=== PATIENT | male | born 1940 | race Caucasian/White ===

== ENCOUNTER → 2018-10-18 | Outpatient (REF) ==
[2018-10-18 13:56] LABS: CREATININE, serum 0.9 mg/dL (0.66-1.25); POTASSIUM 4.5 mmol/L (3.4-5.0)
== END ==
LOC: ZCOL.LAB 13:24
PROVIDERS: Internal Medicine
DX: Z01.89 Encounter for other specified special examinations (principal)

== ENCOUNTER → 2018-10-25 | Outpatient (REF) ==
[2018-10-25 15:35] LABS: CALCIUM 8.4 mg/dL (8.4-10.2); CREATININE, serum 0.87 mg/dL (0.66-1.25); MAGNESIUM 2.4 mg/dL (1.6-2.3); PHOSPHOROUS 3.8 mg/dL (2.5-4.5); POTASSIUM 4.5 mmol/L (3.4-5.0)
== END ==
LOC: ZCOL.LAB 15:11
PROVIDERS: Internal Medicine
DX: Z01.89 Encounter for other specified special examinations (principal)

== ENCOUNTER → 2018-10-29 | Outpatient (REF) | LOC: ZCOL.LAB 13:00 | DX: Z01.89 Encounter for other specified special examinations (principal) ==

== ENCOUNTER → 2018-11-11 | Outpatient (CLI) | payer MEDICARE | LOC: COL.VAS 13:51 | DX: R60.0 Localized edema (principal) ==

== ENCOUNTER 2018-11-16 00:34 | Emergency (ER) | payer MEDICARE ==
[~2018-11-16] VITALS: Wt 86.4 kg
[2018-11-16 00:37] VITALS: BP 131/61; TEMP 97.7
[2018-11-16] MEDS ORDERED: TYLENOL SU650 MG/SUP RC (01:30)
[2018-11-16] MEDS ORDERED: CORDARONE200 MG/TAB PEG (01:31)
[2018-11-16] MEDS ORDERED: ISOPTO ATROPINE15 ML OP (01:33)
[2018-11-16] MEDS ORDERED: CEPHALEXIN500 M1 PEG (01:34)
[2018-11-16] MEDS ORDERED: DULCOLAX S10 MG/SUPP RC (01:34)
[2018-11-16 01:40] VITALS: PULSE 76
[2018-11-16] MEDS ORDERED: DICLOZOR1 EACH TP (01:42)
[2018-11-16] MEDS ORDERED: TRUSOPT OCUMETE10 ML OS (01:43)
[2018-11-16] MEDS ORDERED: COLACE LIQUI10 MG/ML PEG (01:43)
[2018-11-16] MEDS ORDERED: LEVEMIR100 U/ML SQ (01:44)
[2018-11-16] MEDS ORDERED: IMODIUM 2MG CAPS2 MG PEG (01:44)
[2018-11-16] MEDS ORDERED: LASIX 20MG TABL20 MG PEG (01:45)
[2018-11-16] MEDS ORDERED: IPRATROPIUM BROM3 M1 IH (01:45)
[2018-11-16] MEDS ORDERED: LOPRESSOR 225 MG/TAB PEG (01:46)
[2018-11-16] MEDS ORDERED: LIPITOR 80MG80 MG PEG (01:46)
[2018-11-16] MEDS ORDERED: KEPPRA SUSP100 MG/ML PEG (01:46)
[2018-11-16] MEDS ORDERED: GOOD NEIGH1200 MG/15 PEG (01:47)
[2018-11-16] MEDS ORDERED: ALMACONE 360 M360 ML PEG (01:48)
[2018-11-16] MEDS ORDERED: NYSTATIN OR100 MU/ML PEG (01:49)
[2018-11-16] MEDS ORDERED: OMNIPRED 5 ML5 ML OS (01:50)
[2018-11-16] MEDS ORDERED: TYLENOL 325MG325 MG PEG (01:50)
== END 2018-11-16 01:40 | disposition home or self-care (01) ==
LOC: COL.ER 00:34
DX: Z43.1 Encounter for attention to gastrostomy (principal); Z86.73 Personal history of transient ischemic attack (TIA), and cerebral infarction without residual deficits

== ENCOUNTER → 2018-11-17 | Outpatient (CLI) | payer MEDICARE ==
[~2018-11-17] MED LIST: ALMACONE 360 M360 ML PEG; CEPHALEXIN500 M1 PEG; COLACE LIQUI10 MG/ML PEG; CORDARONE200 MG/TAB PEG; DICLOZOR1 EACH TP; DULCOLAX S10 MG/SUPP RC; GOOD NEIGH1200 MG/15 PEG; IMODIUM 2MG CAPS2 MG PEG; IPRATROPIUM BROM3 M1 IH; ISOPTO ATROPINE15 ML OP; KEPPRA SUSP100 MG/ML PEG; LASIX 20MG TABL20 MG PEG; LEVEMIR100 U/ML SQ; LIPITOR 80MG80 MG PEG; LOPRESSOR 225 MG/TAB PEG; NYSTATIN OR100 MU/ML PEG; OMNIPRED 5 ML5 ML OS; TRUSOPT OCUMETE10 ML OS; TYLENOL 325MG325 MG PEG; TYLENOL SU650 MG/SUP RC
== END ==
LOC: COL.RAD 09:32
DX: S06.6X9A Traumatic subarachnoid hemorrhage with loss of consciousness of unspecified duration, initial encounter (principal); G31.9 Degenerative disease of nervous system, unspecified; Z98.890 Other specified postprocedural states

== ENCOUNTER → 2018-12-02 | Outpatient (CLI) | payer MEDICARE | LOC: COL.VAS 08:33 | DX: I82.4Z1 Acute embolism and thrombosis of unspecified deep veins of right distal lower extremity (principal) ==

== ENCOUNTER 2019-03-12 16:19 | Inpatient (IN) | payer MEDICARE ==
[2019-03-12] VITALS: BP 144/57; PULSE 52; TEMP 97.9
[~2019-03-12] VITALS: Ht 188 cm; Wt 141.4 kg
[2019-03-12] MEDS ORDERED: LEVEMIR100 U/ML SQ ×2 (16:53→17:04)
[2019-03-12 17:02] LABS: BASO % 0.3 % (0.0-2.0); EOS # 0.2 (0.0-0.7); EOS % 2.6 % (0-4.0); GRAN # 4.6 (1.4-6.5); GRAN % 52.9 % (42.2-75.2); HEMATOCRIT 40.7 % (42.0-52.0); LYMPH # 3.2 (1.2-3.4); LYMPH % 36.1 % (20.0-51.0); MEAN CELL VOLUME 96 fl (80.0-100.0); MEAN CORPUSCULAR HEMOGLOBIN 31 pg (27.0-31.0); MEAN CORPUSCULAR HGB CONC 32 g/dl (33.0-37.0); MEAN PLATELET VOLUME 10.7 fl (7.4-10.4); MONO # 0.7 (0.1-0.6); MONO % 7.9 % (1.7-9.3); PLATELET COUNT 79 K/mm3 (130-400); RED BLOOD COUNT 4.24 M/mm3 (4.20-5.60); REDCELL DISTRIBUTION WIDTH-CV 15.3 % (11.5-14.5)
[2019-03-12] MEDS ORDERED: NOVOLOG 100U100 U/M1 SQ ×4 (17:07→17:11)
[2019-03-12 17:14] LABS: ALBUMIN 2.9 gm/dL (3.5-5.0); BILIRUBIN,TOTAL 0.4 mg/dL (0.0-1.0); C-REACTIVE PROTEIN 4.4 mg/dL (0.0-0.9); CALCIUM 8.4 mg/dL (8.4-10.2); CREATININE, serum 1.16 (0.66-1.25); POTASSIUM 4.2 mmol/L (3.4-5.0)
[2019-03-12] MEDS ORDERED: AQUAPHOR HEALING41% TP (17:16)
[2019-03-12] MEDS ORDERED: ZOLOFT 50MG50 MG PEG (17:16)
[2019-03-12] MEDS ORDERED: KEPPRA SUSP100 MG/ML PEG (17:17)
[2019-03-12] MEDS ORDERED: LIQUID PROTEIN PEG (17:21)
[2019-03-12 17:22] LABS: TROPONIN-I 0.019 ng/mL (0.000-0.035)
[2019-03-12] MEDS ORDERED: TWOCAL HN 237237 ML PO (17:32)
[2019-03-12 17:33] LABS: COLLECTION METHOD CATHETER
[2019-03-12 17:46] LABS: PH 5 (5-8); URINE APPEARANCE Clear; URINE BACTERIA Rare /hpf; URINE BILIRUBIN Negative (NEGATIVE); URINE BLOOD 2+ (NEGATIVE); URINE COLOR Yellow; URINE GLUCOSE Negative (NEGATIVE); URINE KETONE Negative (NEGATIVE); URINE LEUKOCYTE ESTERASE Negative (NEGATIVE); URINE NITRATE Negative (NEGATIVE); URINE PROTEIN(semi-quant) Negative (NEGATIVE); URINE UROBILINOGEN Negative (NEGATIVE)
[2019-03-12 21:47] VITALS: BP 144/57; PULSE 52; TEMP 97.9
[2019-03-12 22:15] VITALS: BP 143/46; PULSE 51; TEMP 98.1
--- NOTE | 2019-03-12 22:15 | NUR ---
Admitted to medical floor from ER- altered mental status, increased combativeness at care home- has HX stroke; right sided weakness, non verbal, blind right eye- has PEG tube, NPO at this time. Started on antibiotics, has ulcer to right inner ankle, culture taken at this time, Vicki HERNANDEZ here to see pt/wound-- wound cleaned with saline- dry dressing applied. Iv fluids at 125cc/hr
[2019-03-12] MEDS ORDERED: LASIX 40MG TABL40 MG PO (22:42)
[2019-03-12] MEDS ORDERED: PREDFORTE5ML OP (22:49)
[2019-03-12] MEDS ORDERED: TYLENOL SU650 MG/SUP RC (22:53)
[2019-03-12] MEDS ORDERED: AQUAPHOR OINTM396 GM TP (22:54)
[2019-03-12] MEDS ORDERED: DULCOLAX S10 MG/SUPP RC (22:55)
[2019-03-12] MEDS ORDERED: COLACE LIQUI10 MG/ML PO (22:56)
[2019-03-12] MEDS ORDERED: ATROVENT I0.2 MG/1 M IH (22:57)
[2019-03-12] MEDS ORDERED: IMODIUM 2MG CAPS2 MG PO (22:57)
[2019-03-12] MEDS ORDERED: MILK OF MA400 MG/52 PO (22:58)
[2019-03-12] MEDS ORDERED: MYLANTA 150 ML150 M1 PEG (22:58)
[2019-03-12] MEDS ORDERED: NYSTATIN100000 U/G TOP (22:59)
[2019-03-12] MEDS ORDERED: TYLENOL 325MG325 MG PO (23:00)
--- NOTE | 2019-03-13 01:50 | NUR ---
Blood sugar 59- Vicki HERNANDEZ notified- states ok to given some juice down PEG-
[2019-03-13 03:49] VITALS: BP 128/47; PULSE 115; PULSE 51; TEMP 98.1
--- NOTE | 2019-03-13 06:00 | NUR ---
Did sleep well last night- Heart rate 45-50, did call Nayeli HERNANDEZ regarding low heart rate and Tele parameters of low of 50,, she will put in orders- states will DC Lopressor. Iv fluids continue at 125cc/hr, Did measure the right ankle ulcer- 6cm x 3.5cm, foul smell, red edges, stage 3,, also has blister type sore on left great toe. Blood sugar did come up to 82, now back to 70--will give some cranberry juice per PEG -ok per Ron HERNANDEZ.
[2019-03-13 06:52] LABS: BASO % 0.3 % (0.0-2.0); EOS # 0.3 (0.0-0.7); GRAN # 3.2 (1.4-6.5); GRAN % 44.2 % (42.2-75.2); HEMATOCRIT 37.2 % (42.0-52.0); HEMOGLOBIN 11.9 g/dl (13.5-18.0); LYMPH % 41.6 % (20.0-51.0); MEAN CELL VOLUME 97 fl (80.0-100.0); MEAN CORPUSCULAR HEMOGLOBIN 31 pg (27.0-31.0); MEAN CORPUSCULAR HGB CONC 32 g/dl (33.0-37.0); MONO # 0.7 (0.1-0.6); MONO % 9.8 % (1.7-9.3); PLATELET COUNT 73 K/mm3 (130-400); RED BLOOD COUNT 3.82 M/mm3 (4.20-5.60); REDCELL DISTRIBUTION WIDTH-CV 15.5 % (11.5-14.5)
[2019-03-13 07:03] LABS: CREATININE, serum 1.11 (0.66-1.25); POTASSIUM 4.1 mmol/L (3.4-5.0)
--- NOTE | 2019-03-13 07:30 | NUR ---
Tele has called twice about patient lo rate alarm, patient HR mid 40s. Checked on patient, patient is sleeping, easily arousable, but sleepy. Per night nurse, ELY Chahal, tele called, GÓMEZ was notified and wouldn't change the parameters. This nurse will contact Stefanie to have parameters changed.
[2019-03-13 07:43] VITALS: BP 132/47; PULSE 44; TEMP 98
--- NOTE | 2019-03-13 09:27 | NUR ---
This nurse contacted Dr. Watts, tele parameters changed to 40 from 50.
--- NOTE | 2019-03-13 09:45 | NUR ---
Patient assessment complete. Patient is alert, some confusion but hard to tell since patient is nonverbal. Patient makes some sounds, incomprehensible speech occasionally. Patient will moan in discomfort or pain, mostly when benig moved. Lung sounds diminished throughout. Bowel sounds hypoactive. Radial pulses strong bilaterally. HR reg rhythm and sound, bradycardia, mid 40s-low 50s. Patient able to lift left extremeties and hold. 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 Patient has Stage 2 ulcer on right medial ankle. Open, slough and exposed tissue, covered with dressing. Left big toe has blood blister. RFA IV patent, no complications. PEG tube is in place, no complications, checked for placement. Medications administered through PEG with no complications. Call light within reach, daughter at bedside. No other needs at this time.
--- NOTE | 2019-03-13 11:18 | NUR ---
Plan is to return to [facility]. Patient is in room with DTR/ DPMELISSA at bedside. Dtr is Atiya . Patient is non-verbal but does nod in approval. DTR answered questions for patient. DTR reports that she is agreeable for patient to return to [facility] and is concerned about the wound on his leg that was not managed in stay. Reports of wound getting bigger. Patient uses a walker 24/7 and a wheel chair 1x a week. Patient nods in agreement to return to at [facility]. Choice form placed in chart. Will need to follow for any additional care.
[2019-03-13 11:57] VITALS: BP 130/34; PULSE 49; TEMP 97.8
--- NOTE | 2019-03-13 14:30 | NUR ---
Patient received PEG tube feeding. No complications. Placement checked prior. Adminsitered feeding with syringe. No other needs at this time. Call light within reach. Patient daughter at bedside.
[2019-03-13 16:00] VITALS: BP 114/60; PULSE 64; TEMP 98.5
--- NOTE | 2019-03-13 17:00 | NUR ---
Patient assisted in bed change, new gown and cleaning. Patient incontinent. No other needs at this time. Call light within reach.
--- NOTE | 2019-03-13 17:30 | NUR ---
Dressing changed on patient right medial ulcer at shift change. Cleaned with normal saline and applied new gauze, wrapped with kerlex. Call light within reach. No other needs at this time. Report given to ELY Wilkinson.
[2019-03-13 20:00] VITALS: BP 135/46; PULSE 49; TEMP 97.3
[2019-03-14] VITALS: BP 122/42; PULSE 56; TEMP 98.5
[2019-03-14 04:00] VITALS: BP 118/76; PULSE 61; TEMP 98.5
--- NOTE | 2019-03-14 06:28 | NUR ---
IV ZOSYN DUE TO BE HUNG AT 0530. CURRENT IV SITE INFILTRATED. ATTEMPTED TO OBTAIN NEW SITE X2 WITH STAFF ASSIST. PATIENT COMBATIVE AND AGITATED. TO ATTEMPT OBTAINING ACCESS ONCE PATIENT CALMS DOWN.
[2019-03-14 07:14] VITALS: BP 139/37; PULSE 60; TEMP 98
--- NOTE | 2019-03-14 07:20 | NUR ---
Report received from ELY Wilkinson. PT restng in bed wtih PT attempting to work with him. Pt appears agitated but not trying to cause any harm to anyone. Sitting at side of bed with PT and CNAx2 in the room. Will conitnue to monitor.
--- NOTE | 2019-03-14 08:19 | NUR ---
Assessment charted. PEG tube feeding provided, meds given, flushed with 30 mls before, between and after. Checked residual prior to feeding and 0 cc's found. Pt resting in bed after attempting to get up with PT but failed. IV started in RH, pt tolerated well. PEG tube site cleaned and dressing applied. R ankle dressing is CDI. PT denies pain. Resting quietly in bed with alarm on. Will continue to monitor.
[2019-03-14 11:44] VITALS: BP 129/41; PULSE 54; TEMP 98.4
[2019-03-14 15:27] VITALS: BP 129/54; PULSE 51; TEMP 97.4
--- NOTE | 2019-03-14 18:19 | NUR ---
Pt has been in recliner for most of the day with daughter at his side. Ate lunch very well, mashed potatoes, sweet mashed potatoes, yogurt, 2 teas and 2 glasses of water. For supper had 2 milks and some tuna salad. Does not want to get back into bed. Up to commode for bathroom needs but often incontinent before getting to commode. Pt has been pleasant most of the time but gets agitated easily when moving. INT to . Will give bedside shift report to nightshift nurse who will resume care.
[2019-03-14 19:16] VITALS: BP 137/50; PULSE 55; TEMP 98.7
--- NOTE | 2019-03-14 20:00 | NUR ---
PT ASSISTED TO BEDSIDE COMMODE WITH THE ASSISTANCE OF +4 AND THEN IN BED. PT HAD SAT UP FOR MOST OF THE DAY IN RECLINER. PT'S DAUGHTER HAD LEFT AND WENT HOME. PT IS NON-VERBAL. PT RESTING IN BED AT THIS TIME. CALL LIGHT WITHIN REACH.
--- NOTE | 2019-03-14 21:14 | NUR ---
LOADED ATROVENT IN SVN PT COMBATIVE UNABLE TO GIVE TX RN CALLED TO ROOM. UNABLE TO GET PT TO ALLOW US TO GIVE SVN OR OBTAIN POX
--- NOTE | 2019-03-14 23:00 | NUR ---
PT HAS BEEN VERY COMBATIVE AND UNCOOPERATIVE WITH CARES. CALLED SANJANA TACK DRILLER AND ADVISED NOT ABLE TO GIVE NECESSARY MEDICATIONS AND CARE. SANJANA TACK DRILLER PUT IN AN ORDER FOR ATIVAN 2MG IV.
--- NOTE | 2019-03-14 23:15 | NUR ---
ASSISTED BY CHARGE NURSE AND CENTER RECEPTIONIST TO ADMINISTRATE IV ATIVAN. PT WAS TRYING TO BE COMBATIVE AND TO PREVENT HIM FOR HURTING HIMSELF HANDS HELD VERY BRIEFLY UNTIL MEDICATION GIVEN.
--- NOTE | 2019-03-14 23:35 | NUR ---
PT'S MEDICATIONS WERE GIVEN VIA PEG-TUBE. PT SLEEPING/RESTING AT THIS TIME. PT SOFTLY SNORING AND NO S/S OF PAIN OR DISCOMFORT NOTED. RESP EVEN AND UNLABORED, LS CTA IN ALL ABBASI. CALL LIGHT WITHIN REACH.
--- NOTE | 2019-03-14 23:40 | NUR ---
TRANSFERED CARES TO LAKESHA GRAVES. REPORT GIVEN.
[2019-03-15 00:34] VITALS: BP 133/56; PULSE 50
--- NOTE | 2019-03-15 00:51 | NUR ---
Report received from ELY Rolon. Patient noted to be drowsy from previously given Ativan. Vital signs and blood glucose was able to be obtained with some difficulty. When this nurse would touch his arm, patient would clench his arm to his side. Patient did not open his eyes while I was in the room. Respirations at 16. Vital signs within normal limits. Patient no longer combative. SCDs applied. Patient appears to be resting well at this time. Bed alarm on.
[2019-03-15 04:19] VITALS: BP 152/57; PULSE 57; TEMP 97.8
--- NOTE | 2019-03-15 05:14 | NUR ---
Patient noted to be incontinent of urine. Bed change completed by 2 staff members. Patient not combative at this time. Pleasant and accepting of cares. Able to nod his head to yes/no questions. PEG tube noted to be advancing slightly out of the site, PEG easily pushed back into place and tape applied to assist with keeping it in place. Will monitor closely.
--- NOTE | 2019-03-15 06:58 | NUR ---
Report given to ELY Santiago.
[2019-03-15 07:42] LABS: BASO % 0.5 % (0.0-2.0); EOS # 0.3 (0.0-0.7); EOS % 5.7 % (0-4.0); GRAN # 2.4 (1.4-6.5); GRAN % 43.2 % (42.2-75.2); HEMOGLOBIN 12.1 g/dl (13.5-18.0); LYMPH # 2.3 (1.2-3.4); LYMPH % 42.2 % (20.0-51.0); MEAN CELL VOLUME 96 fl (80.0-100.0); MEAN CORPUSCULAR HEMOGLOBIN 31 pg (27.0-31.0); MEAN CORPUSCULAR HGB CONC 32 g/dl (33.0-37.0); MEAN PLATELET VOLUME 11.4 fl (7.4-10.4); MONO # 0.4 (0.1-0.6); PLATELET COUNT 85 K/mm3 (130-400); RED BLOOD COUNT 3.94 M/mm3 (4.20-5.60)
[2019-03-15 07:43] VITALS: BP 124/71; PULSE 54; TEMP 98.4
[2019-03-15 07:55] LABS: CALCIUM 8.3 mg/dL (8.4-10.2); CREATININE, serum 1.06 (0.66-1.25); POTASSIUM 4.1 mmol/L (3.4-5.0)
--- NOTE | 2019-03-15 09:00 | NUR ---
Assessment complete. Patient alert, would stare at nursing staff, but not respond verbally. Will shake head yes or no. VS stable. IV not patent, doctor aware, [facility] notified. Feet floated on pillow. Rt ankle venous ulcer, dressing CDI. Breakfast ordered for patient. Seizure precautions in place. Bed alarm on. Call light within reach.
[2019-03-15 11:44] VITALS: BP 128/45; PULSE 54; TEMP 97.8
--- NOTE | 2019-03-15 15:00 | NUR ---
Nursing staff, MRI techs and patients daughter trying to transfer patient into wheelchair for MRI. Patient is getting agitated at daughter while trying to take tele pads off of chest. Patient compliant in getting into wheelchair and daughter going with patient to mri. No further needs expressed by patient.
--- NOTE | 2019-03-15 15:30 | NUR ---
Patient back from MRI. Patient refused to get out of wheelchair for the MRI. Daughter present. Patient brought back up to room 354. Patient is refusing to have telemetry back on chest. No further needs expressed from patient. Call light within reach
[2019-03-15 16:25] VITALS: BP 131/72; PULSE 45; TEMP 98.5
--- NOTE | 2019-03-15 17:44 | NUR ---
Patient is refusing his insulin, does not want to eat his dinner and does not want his peg tube feeding. Nurse was encouraging patient to eat and that nursing staff will assist with feeds. Nurse also informed that blood sugar is high and he needs insulin. Patient verbalized an understanding and still refuses. Call light within reach
--- NOTE | 2019-03-15 18:07 | NUR ---
Patient assisted back into bed by 3 nursing staff. Patient agreed to have telemetry placed back on. Patient refused to have MRI and is refusing to eat dinner and take insulin. Patient was repositioned for comfort, refused covers while in bed. SCD's bilateral legs, heels floated. Bed alarm on and call light within reach. Will continue to monitor
[2019-03-15 20:09] VITALS: BP 139/49; PULSE 62; TEMP 97.8
[2019-03-16 00:12] VITALS: BP 154/45; PULSE 55
--- NOTE | 2019-03-16 01:15 | NUR ---
Patient restless and combative with any attempt of patient care or medication administration. Jenni called, order for One time dose of Ativan 1 mg IV, seroquel PO BID ordered as well.
--- NOTE | 2019-03-16 01:30 | NUR ---
Patient's blood sugar at 42 after drinking 2 apple juices, milk and peanut butter with crackers following his midnight accucheck of 64. 1 Amp D50% given at this time. Will recheck in 15 minutes.
[2019-03-16 04:03] VITALS: BP 163/59; PULSE 55
--- NOTE | 2019-03-16 04:30 | NUR ---
Patient restless, still combative with any care. Patient has not voided all shift, attempted to bladder scan patient. Scan read 525 ml at the highest. Provider contacted, Order for one time dose of Ativan 1 mg IV, in hopes to catheterize the patient.
--- NOTE | 2019-03-16 06:45 | NUR ---
Patient report given to ELY Camejo. Patient resting in bed. Catheter not attempted because patient continues to become combative with any interaction. No other needs observed.
[2019-03-16] MEDS ORDERED: MAXIPIME2 GM IV (09:30)
[2019-03-16] MEDS ORDERED: ASPIRIN E.C. 8181 MG PO (09:31)
[2019-03-16] MEDS ORDERED: NOVOLOG 100U100 U/M1 SQ (09:44)
--- NOTE | 2019-03-16 10:30 | NUR ---
Pt assessment complete. Pt very drowsy but will arouse to voice and touch. He does not answer questions. Cooperative with cares, medications given via PEG. PICC line to be placed to RUE for termite control service representative ABX, daughter updated with plan. Dressing to R foot CDI. Pt incontinent of urine, full bed change provided. Will continue to monitor.
[2019-03-16 11:48] VITALS: BP 163/59; PULSE 55; TEMP 97.8
--- NOTE | 2019-03-16 12:03 | NUR ---
GULSHAN attended clinical rounds. Patient will discharge back to [facility] today (03/16) via EMS at 1pm. SW presented IM to patient's daughter. She signed but did not request a copy. GULSHAN will fax discharge orders once they're completed.
[2019-03-16 12:11] VITALS: BP 137/48; PULSE 46; TEMP 97.2
--- NOTE | 2019-03-16 13:16 | NUR ---
Pt wheeled out at this time. Sent with PICC line to [facility] dc'd from [facility] by [facility].
--- NOTE | 2019-03-16 14:01 | NUR ---
Attempted to call report to Jaspal at this time.
--- NOTE | 2019-03-16 14:13 | NUR ---
Report given to ELY Castañeda at [facility].
== END 2019-03-16 14:13 | DRG 64 ==
LOC: COL.ER 16:19 → MEDICAL 18:36
PROVIDERS: Emergency Medicine; Nurse Practitioner Family; Physician Assistant; ADMIT Family Medicine
PROC: 02HV33Z Insertion of Infusion Device into Superior Vena Cava, Percutaneous Approach (ICD-10-PCS; principal; 2019-03-16)
DX: I63.9 Cerebral infarction, unspecified (principal); L89.513 Pressure ulcer of right ankle, stage 3; L03.115 Cellulitis of right lower limb; N17.9 Acute kidney failure, unspecified; I69.251 Hemiplegia and hemiparesis following other nontraumatic intracranial hemorrhage affecting right dominant side; L89.519 Pressure ulcer of right ankle, unspecified stage; E86.0 Dehydration; I69.991 Dysphagia following unspecified cerebrovascular disease; R13.10 Dysphagia, unspecified; Z66 Do not resuscitate; I69.920 Aphasia following unspecified cerebrovascular disease; I10 Essential (primary) hypertension; E78.5 Hyperlipidemia, unspecified; I44.0 Atrioventricular block, first degree; B96.5 Pseudomonas (aeruginosa) (mallei) (pseudomallei) as the cause of diseases classified elsewhere; I87.8 Other specified disorders of veins; I48.0 Paroxysmal atrial fibrillation; D69.6 Thrombocytopenia, unspecified; I25.10 Atherosclerotic heart disease of native coronary artery without angina pectoris; R53.81 Other malaise; E11.51 Type 2 diabetes mellitus with diabetic peripheral angiopathy without gangrene; F32.9 Major depressive disorder, single episode, unspecified; Z95.5 Presence of coronary angioplasty implant and graft; Z93.1 Gastrostomy status; Z85.51 Personal history of malignant neoplasm of bladder
CPT/HCPCS: 99222-AI; 99232-AI; 99239; C1751; J1815; J2060; J2543; J3370; J7030; J7040

== ENCOUNTER → 2019-03-21 | Outpatient (CLI) | payer MEDICARE ==
[~2019-03-21] MED LIST changes: +AQUAPHOR HEALING41% TP; +AQUAPHOR OINTM396 GM TP; +ASPIRIN E.C. 8181 MG PO; +ATROVENT I0.2 MG/1 M IH; +COLACE LIQUI10 MG/ML PO; +IMODIUM 2MG CAPS2 MG PO; +LASIX 40MG TABL40 MG PO; +LIQUID PROTEIN PEG; +MAXIPIME2 GM IV; +MILK OF MA400 MG/52 PO; +MYLANTA 150 ML150 M1 PEG; +NOVOLOG 100U100 U/M1 SQ; +NYSTATIN100000 U/G TOP; +PREDFORTE5ML OP; +TWOCAL HN 237237 ML PO; +TYLENOL 325MG325 MG PO; +ZOLOFT 50MG50 MG PEG
[2019-03-21 13:52] LABS: BASO % 0.5 % (0.0-2.0); EOS # 0.3 (0.0-0.7); EOS % 4.4 % (0-4.0); GRAN # 2.9 (1.4-6.5); GRAN % 48.5 % (42.2-75.2); HEMOGLOBIN 11.9 g/dl (13.5-18.0); LYMPH # 2.3 (1.2-3.4); LYMPH % 38.2 % (20.0-51.0); MEAN CELL VOLUME 95 fl (80.0-100.0); MEAN CORPUSCULAR HEMOGLOBIN 31 pg (27.0-31.0); MEAN CORPUSCULAR HGB CONC 33 g/dl (33.0-37.0); MEAN PLATELET VOLUME 11.2 fl (7.4-10.4); MONO # 0.5 (0.1-0.6); MONO % 7.9 % (1.7-9.3); PLATELET COUNT 80 K/mm3 (130-400); RED BLOOD COUNT 3.84 M/mm3 (4.20-5.60); REDCELL DISTRIBUTION WIDTH-CV 14.8 % (11.5-14.5)
[2019-03-21 13:53] LABS: HEMATOCRIT 36.6 % (42.0-52.0)
[2019-03-21 14:05] LABS: ALBUMIN 2.2 gm/dL (3.5-5.0); BILIRUBIN,TOTAL 0.3 mg/dL (0.0-1.0); C-REACTIVE PROTEIN 0.8 mg/dL (0.0-0.9); CREATININE, serum 0.95 (0.66-1.25); POTASSIUM 4.4 mmol/L (3.4-5.0); TOTAL PROTEIN 4.8 gm/dL (6.4-8.2)
== END ==
LOC: ZCOL.LAB 13:39
PROVIDERS: Internal Medicine
DX: E11.59 Type 2 diabetes mellitus with other circulatory complications (principal); A49.8 Other bacterial infections of unspecified site; L97.311 Non-pressure chronic ulcer of right ankle limited to breakdown of skin

== ENCOUNTER → 2019-03-27 | Outpatient (REF) ==
[2019-03-27 22:27] LABS: BASO # 0.1 (0.0-0.2); BASO % 0.5 % (0.0-2.0); EOS # 0.3 (0.0-0.7); EOS % 3.6 % (0-4.0); GRAN # 4.9 (1.4-6.5); GRAN % 53.6 % (42.2-75.2); HEMATOCRIT 39.3 % (42.0-52.0); HEMOGLOBIN 12.8 g/dl (13.5-18.0); LYMPH # 3.1 (1.2-3.4); LYMPH % 33.4 % (20.0-51.0); MEAN CELL VOLUME 95 fl (80.0-100.0); MEAN CORPUSCULAR HEMOGLOBIN 31 pg (27.0-31.0); MEAN CORPUSCULAR HGB CONC 33 g/dl (33.0-37.0); MEAN PLATELET VOLUME 11.6 fl (7.4-10.4); MONO # 0.8 (0.1-0.6); MONO % 8.6 % (1.7-9.3); PLATELET COUNT 92 K/mm3 (130-400); RED BLOOD COUNT 4.12 M/mm3 (4.20-5.60); REDCELL DISTRIBUTION WIDTH-CV 15.4 % (11.5-14.5)
[2019-03-27 22:33] LABS: ALBUMIN 2.3 gm/dL (3.5-5.0); BILIRUBIN,TOTAL 0.4 mg/dL (0.0-1.0); CALCIUM 8.3 mg/dL (8.4-10.2); CREATININE, serum 1.03 (0.66-1.25); POTASSIUM 4.5 mmol/L (3.4-5.0); TOTAL PROTEIN 5.1 gm/dL (6.4-8.2)
== END ==
LOC: ZCOL.LAB 22:22
PROVIDERS: Nurse Practitioner Family
DX: D64.9 Anemia, unspecified (principal); A49.8 Other bacterial infections of unspecified site

== ENCOUNTER → 2019-03-27 | Outpatient (CLI) | payer MEDICARE | LOC: ZCOL.LAB 21:10 | DX: D64.9 Anemia, unspecified (principal); A49.8 Other bacterial infections of unspecified site ==

== ENCOUNTER → 2019-03-29 | Outpatient (CLI) | payer MEDICARE ==
[2019-03-29 12:29] LABS: BASO % 0.5 % (0.0-2.0); EOS # 0.3 (0.0-0.7); EOS % 4.1 % (0-4.0); GRAN # 4.9 (1.4-6.5); GRAN % 64.2 % (42.2-75.2); HEMATOCRIT 38.7 % (42.0-52.0); HEMOGLOBIN 12.4 g/dl (13.5-18.0); LYMPH # 1.7 (1.2-3.4); LYMPH % 22.9 % (20.0-51.0); MEAN CELL VOLUME 97 fl (80.0-100.0); MEAN CORPUSCULAR HEMOGLOBIN 31 pg (27.0-31.0); MEAN CORPUSCULAR HGB CONC 32 g/dl (33.0-37.0); MEAN PLATELET VOLUME 12.2 fl (7.4-10.4); MONO # 0.6 (0.1-0.6); MONO % 7.9 % (1.7-9.3); PLATELET COUNT 83 K/mm3 (130-400); RED BLOOD COUNT 4.01 M/mm3 (4.20-5.60); REDCELL DISTRIBUTION WIDTH-CV 15.2 % (11.5-14.5)
[2019-03-29 12:37] LABS: CALCIUM 8.2 mg/dL (8.4-10.2); CREATININE, serum 1.06 (0.66-1.25); POTASSIUM 4.7 mmol/L (3.4-5.0)
== END ==
LOC: ZCOL.LAB 12:15
PROVIDERS: Family Medicine
DX: J18.9 Pneumonia, unspecified organism (principal)

== ENCOUNTER → 2019-03-30 | Outpatient (CLI) | payer MEDICARE | LOC: ZCOL.LAB 04:45 | DX: J18.9 Pneumonia, unspecified organism (principal) ==

== ENCOUNTER → 2019-04-01 | Outpatient (CLI) | payer MEDICARE ==
[2019-04-01 10:37] LABS: BASO # 0.1 (0.0-0.2); BASO % 0.8 % (0.0-2.0); EOS # 0.4 (0.0-0.7); EOS % 5.2 % (0-4.0); GRAN # 3.9 (1.4-6.5); GRAN % 51.6 % (42.2-75.2); HEMOGLOBIN 12.8 g/dl (13.5-18.0); LYMPH # 2.6 (1.2-3.4); LYMPH % 34.3 % (20.0-51.0); MEAN CELL VOLUME 97 fl (80.0-100.0); MEAN CORPUSCULAR HEMOGLOBIN 31 pg (27.0-31.0); MEAN CORPUSCULAR HGB CONC 32 g/dl (33.0-37.0); MEAN PLATELET VOLUME 12.3 fl (7.4-10.4); MONO # 0.6 (0.1-0.6); MONO % 7.6 % (1.7-9.3); PLATELET COUNT 93 K/mm3 (130-400); RED BLOOD COUNT 4.11 M/mm3 (4.20-5.60); REDCELL DISTRIBUTION WIDTH-CV 15.5 % (11.5-14.5)
[2019-04-01 10:45] LABS: ALBUMIN 2.5 gm/dL (3.5-5.0); BILIRUBIN,TOTAL 0.4 mg/dL (0.0-1.0); CALCIUM 8.3 mg/dL (8.4-10.2); CREATININE, serum 0.95 (0.66-1.25); POTASSIUM 4.3 mmol/L (3.4-5.0); TOTAL PROTEIN 5.6 gm/dL (6.4-8.2)
[2019-04-01 11:02] LABS: VANCOMYCIN TROUGH 32.58 ug/mL (7.00-20.00)
== END ==
LOC: ZCOL.LAB 09:17
PROVIDERS: Internal Medicine
DX: A49.8 Other bacterial infections of unspecified site (principal)

== ENCOUNTER → 2019-04-03 | Outpatient (CLI) | payer MEDICARE | LOC: ZCOL.LAB 11:29 | DX: A49.8 Other bacterial infections of unspecified site (principal) ==

== ENCOUNTER → 2019-04-07 | Outpatient (CLI) | payer MEDICARE | LOC: ZCOL.LAB 10:33 | DX: J18.9 Pneumonia, unspecified organism (principal) ==